=== PATIENT | female | born 1995 | race Hispanic/Latino ===

== ENCOUNTER 2017-03-03 03:41 | Emergency (ER) | payer OTHER ==
[2017-03-03 03:48] VITALS: BP 135/87; PULSE 97; RESP 16; TEMP 98.1; O2SAT 100
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
== END 2017-03-03 06:01 | disposition home or self-care (01) ==
LOC: H.ER 03:41
DX: S33.5XXA Sprain of ligaments of lumbar spine, initial encounter (principal); V03.10XA Pedestrian on foot injured in collision with car, pick-up truck or van in traffic accident, initial encounter; Y92.410 Unspecified street and highway as the place of occurrence of the external cause